=== PATIENT | male | born 1995 | race Two or more races ===

== ENCOUNTER 2022-03-02 12:08 | Emergency (ER) | payer SELFPAY ==
[~2022-03-02] VITALS: Ht 172.7 cm; Wt 59.0 kg
[2022-03-02] MEDS ORDERED: SODIUM CHLORIDE 0.9% 1,000 ML IV ONE (12:45)
[2022-03-02] MEDS ORDERED: MIDAZOLAM HCL 2 MG/2 ML VIAL IV ONE (12:45)
[2022-03-02 13:49] LABS: BASOPHILS % 0.8 % (0.0-2.0); EOSINOPHILS % 1.6 % (0.0-5.0); HEMATOCRIT. 45.9 % (42.0-52.0); HEMOGLOBIN. 15.9 g/dL (14.0-18.0); LYMPHOCYTES % 50.4 % (20.0-50.0); MEAN CORPUSCULAR HEMOGLOBIN 31.5 pg (28.0-32.0); MEAN CORPUSCULAR VOLUME 91.4 fL (80.0-94.0); MEAN PLATELET VOLUME 9.9 fl (7.4-10.4); MONOCYTES % 9.4 % (2.0-8.0); NEUTROPHILS % 37.8 % (40.0-76.0); PLATELET 157 x1000/uL (130-400); RED BLOOD CELL COUNT 5.03 mill/uL (4.7-6.1); RED CELL DISTRIBUTION WIDTH 12.1 % (11.6-14.6)
[2022-03-02 14:10] LABS: CHLORIDE 103 mEq/L (98-107)
[2022-03-02 14:19] LABS: ETHANOL BLOOD < 10 mg/dL
[2022-03-02 16:02] VITALS: BP 99/58
== END 2022-03-02 16:20 | disposition home or self-care (01) ==
LOC: ER 12:08
DX: E11.649 Type 2 diabetes mellitus with hypoglycemia without coma (principal); F12.10 Cannabis abuse, uncomplicated; F14.10 Cocaine abuse, uncomplicated; R42 Dizziness and giddiness; R07.89 Other chest pain
CPT/HCPCS: 36415; 71045; 80053; 80320; 82962; 85025; 93005; 96361; 96374; 99285; J2250; J7030; G0480

== ENCOUNTER 2022-03-18 07:32 | Emergency (ER) | payer SELFPAY ==
[~2022-03-18] VITALS: Ht 177.8 cm; Wt 80.0 kg
[2022-03-18] MEDS ORDERED: IBUPROFEN 600MG TABLET PO STA (08:05)
[2022-03-18] MEDS ORDERED: IBUP-2029 MT (08:36)
[2022-03-18 08:42] VITALS: BP 128/78
== END 2022-03-18 09:05 | disposition home or self-care (01) ==
LOC: ER 07:32
DX: B34.9 Viral infection, unspecified (principal); R05.9 Cough, unspecified; E11.9 Type 2 diabetes mellitus without complications; F12.10 Cannabis abuse, uncomplicated; Z20.822 Contact with and (suspected) exposure to COVID-19
CPT/HCPCS: 71045; 87426; 99284